=== PATIENT | female | born 1930 | race Caucasian/White ===

== ENCOUNTER 2016-09-22 16:40 | Inpatient (IN) ==
[~2016-09-22 16:40] MED LIST: NORCURON ONE
[2016-09-22] MEDS ORDERED: ASPIRIN PO STA (16:54)
--- NOTE | 2016-09-22 17:32 | Diag Imaging Result Doc PS360 ---
EXAM : HEAD/C-SPINE W/O CONTRAST HISTORY: fall TECHNIQUE: COMPARISON: None. FINDINGS: Head: No parenchymal hemorrhage. No epidural or subdural hematoma. No subarachnoid hemorrhage. No mass identified on this noncontrasted exam. No hydrocephalus. No sinus opacification. Cervical spine: There is good alignment to the cervical spine. No precervical soft tissue swelling. No subluxation. There is a lucent line to the right lamina of the T1 vertebra. Questionable extension into the transverse process. No other fracture. The bones are osteopenic. IMPRESSION: Head: No hemorrhage. No injury. Cervical spine: Lucent line through the right lamina of the T1 vertebra which may not be acute. No other acute injury identified. Electronically signed by Foreign Terry 09/22/2016 5:30 PM
[2016-09-22 17:38] LABS: MANUAL DIFF NEEDED? NO
--- NOTE | 2016-09-22 17:41 | Diag Imaging Result Doc PS360 ---
EXAM: CT THORAX W/O CONTRAST HISTORY: fall TECHNIQUE: COMPARISON: 11/15/2015 FINDINGS: No pneumothoraces. There are multifocal dense bilateral infiltrates. Trace pleural fluid. No cardiomegaly. No blood in the mediastinum. No compressed thoracic vertebra. No other injury. IMPRESSION: Multifocal dense bilateral infiltrates with trace pleural fluid. Electronically signed by Foreign Terry 09/22/2016 5:38 PM
[2016-09-22 17:44] LABS: BASO% 0.5 % (0.0-0.8); HEMATOCRIT 45.8 % (37.0-47.0); HEMOGLOBIN 14.6 g/dL (12.0-16.0); IMM GRAN# 0.05 X1000 (0.0-0.04); IMM GRAN% 0.5 % (0.0-0.5); LYMPH# 3.38 X1000 (1.2-3.4); LYMPH% 34.6 % (20.5-51.1); MCHC 31.9 g/dL (33-37); MCV 94.2 FL (81-99); MONO# 0.72 X1000 (0.11-0.59); MONO% 7.4 % (1.7-9.3); MPV 11.3 FL (7.4-10.4); PLT 248 X1000 (130-400); RBC 4.86 XMIL (4.2-5.4)
--- NOTE | 2016-09-22 17:45 | PROVIDER DOCUMENTATION ---
This chart was entered by Bruce Dickey Scribe, acting as scribe for Jacinto Schafer MD. [id number] - General Source: EMS Unable to obtain history due to:: urgency - History of Present Illness -Trauma Location of Pain/Injury: reports: neck, back Pain Radiation: reports: no radiation Quality of Pain: reports: dull Severity: reports: severe Onset/Duration: reports: abrupt, 1 hour ago Timing: reports: still present, constant, getting worse Method of Injury: reports: direct blow, fall Loss of Consciousness: no loss of consciousness Remembers:: reports: injury, coming to hospital Modifying Factors: worse with: movement, palpation Injury Associated Symptoms: reports: back/neck pain, shortness of breath. denies: dizziness, nausea, snap/crack/pop sensation, vomiting Locality of Occurance: Home Similar Symptoms Previously?: No Recently seen or treated by another doctor?: No <Jacinto Schafer I - Last Filed: 09/22/16 17:44> <Ralph Rdz - Last Filed: 09/22/16 21:47> - General Stated Complaint: FALL Time Seen by Provider: 09/22/16 16:40 Allergies/Adverse Reactions: Patient Allergies Allergy/AdvReac Type Severity Reaction Status Date / Time Penicillins Allergy Unknown Verified 11/15/15 20:15 Home Medications: Home Medication List Medication Instructions Recorded Confirmed Last Taken Type Diltiazem HCl [Diltiazem 24Hr Cd] 180 mg PO DAILY #30 cap.er.24h 12/17/1305/27/14 22:15 Rx Pantoprazole [Protonix] 40 mg PO DAILY@0700 #30 tablet 03/09/14 09/22/16 07:00 Rx Metoprolol Tartrate 25 mg PO DAILY PRN #30 tablet 05/28/14 09/22/16 09/22/16 07: 00 Rx Potassium Chloride E.r. [Micro-K] 10 meq PO DIRECTED 05/28/14 09/22/16 1 Day Ago History Rivaroxaban [Xarelto] 15 mg PO DAILY 05/28/14 09/22/16 09/22/16 07:00 History Polyethylene Glycol 3350 [Miralax] 17 gm PO DAILY #7 powd.pack 11/15/15 Unknown Rx Sitagliptin [Januvia] 50 mg PO BID 09/22/16 09/22/16 09/22/16 07:00 History - History of Present Illness -Trauma Nature of Presenting Problem: Patient is a 86 y/o F that presents to the ER via EMS after falling from porch ( 4ft). she reports slipping. Denies loc, reports she might have hit the back of her head. EMS arrived, patient denied back or neck pain. She reported short of breath and was found to have o2 saturation in the 60s to 70s on RA. she was placed on c-pap. she then started to report back/neck pain. (Bruce Dickey) Patient is a 86 y/o F that presents to the ER via EMS after falling from porch ( 4ft). she reports slipping. Denies loc, reports she might have hit the back of her head. EMS arrived, patient denied back or neck pain. She reported short of breath and was found to have o2 saturation in the 60s to 70s on RA. she was placed on c-pap. she then started to report back/neck pain. (Jacinto Schafer I) Review of Systems - Adult - REVIEW OF SYSTEMS - ADULT ROS:: limited per condition Constitutional: reports: no symptoms reported Eyes: denies: decreased vision, blurred vision, double vision Ears, Nose, Mouth & Throat: denies: ear discharge, epistaxis, sinus problem Cardiovascular: denies: chest pain, palpitations Respiratory: reports: shortness of breath. denies: cough Gastrointestinal: denies: abdominal pain, nausea, vomiting Genitourinary: reports: no symptoms reported Musculoskeletal: reports: back pain, neck pain Integumentary: reports: no symptoms reported Neurological: denies: dizziness/vertigo, headache/migraines, seizure, syncope Psychiatric: reports: no symptoms reported Endocrine: reports: no symptoms reported Hematologic/Lymphatic: reports: no symptoms reported Allergic/Immunologic: reports: no symptoms reported All Other Systems: Reviewed and Negative <Jacinto Schafer I - Last Filed: 09/22/16 17:44> - REVIEW OF SYSTEMS - ADULT Constitutional: reports: no symptoms reported <Ralph Rdz - Last Filed: 09/22/16 21:47> Past History - Adult - PAST MEDICAL HISTORY-ADULT Review of Records: reports: Old Records Reviewed, Nursing Assessment Review, Medications Reviewed Cardiovascular: reports: A-Fib, HTN, heart valve problem, hyperlipidemia, palpitations Gastrointestinal: reports: GERD Psychiatric: reports: anxiety, depression Endocrine/Immune: reports: thyroid disorder - PRIOR SURGERIES/PROCEDURES Surgical/Procedure History: reports: appendectomy, cholecystectomy, hysterectomy , tonsillectomy, orthopedic (extremity) - IMMUNIZATION STATUS Childhood Immunizations: UTD Flu Vaccine: See Nurse Assessment - FAMILY HISTORY Family History: reviewed, not pertinent - SOCIAL HISTORY Smoking: non-smoker Living Situation: family <Jacinto Schafer I - Last Filed: 09/22/16 17:44> - PAST MEDICAL HISTORY-ADULT Review of Records: reports: Old Records Reviewed, Nursing Assessment Review, Medications Reviewed <Ralph Rdz - Last Filed: 09/22/16 21:47> Physical Exam-Injury Related - Physical Exam-Injury Related Exam Limited by: pt condition Initial Vital Signs Reviewed: Yes General Appearance: alert, severe distress Immobilization?: C-collar, applied 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 Eyes: PERRL/EOMI, pink conjunctivae Head, Ears, Nose, Mouth & Throat: normocephalic/atraumatic, moist mucous membranes, normal ENT inspection Respiratory: respiratory distress (moderate to severe), accessory muscle use, rales (bilaterally) Cardiovascular: regular rate, rhythm, no edema, no murmur Abdominal Exam: normal bowel sounds, non tender, soft, no organomegaly, no pulsatile mass Extremity: normal range of motion, no pedal edema, normal capillary refill, pelvis stable Integumentary: normal color, warm/dry Neurologic: contact lens molder II-XII nml as tested, no motor/sensory deficits Psych/Mental Status: normal mood/affect, normal thought content, normal thought process, oriented x 3 - Glascow Coma Score Best Eye Response ([place]): (4) open spontaneously Best Verbal Response ([place]): (5) oriented Best Motor Response ([place]): (6) obeys commands [place] Total: 15 <Jacinto Schafer I - Last Filed: 09/22/16 17:44> - Physical Exam-Injury Related Initial Vital Signs Reviewed: Yes General Appearance: alert <Ralph Rdz - Last Filed: 09/22/16 21:47> Progress - PLAN OF CARE/RESULTS Result Diagrams: 09/22/16 16:52 - EKG 1 Time of EKG reading by physician:: 16:42 EKG Read and Signed by:: Jacinto Schafer EKG Interpretation (*Must complete 3 of following elements*): Abnormal Rate: 83 Rhythm: NSR Spangler: normal QRS: normal GA Interval: normal ST Wave: non-specific ST changes - CT/MRI 1 CT Study: Cervical Spine, Head Impression: Abnormal CT Results: no hemorrhage, lucent line through the R lamina of T1 vertebra - CHANGE OF SHIFT REPORT (ED Provider) Report Given and Care Transferred to:: [facility] Time of Transfer: 18:00 Items Pending: Labs, XRAY Results, CT/MRI Results <Jacinto Schafer I - Last Filed: 09/22/16 17:44> - PLAN OF CARE/RESULTS Result Diagrams: 09/22/16 16:52 09/22/16 16:52 - XRAY 1 XRAY Study: other (flex/ext neck) Impression: Normal - CT/MRI 2 CT Study: Thorax Impression: Abnormal (multifocal infiltrates) - CONSULTS/PCP/HOSPITALIST Notification #1 *Consult/PCP/Hospitalist*: Dr Castillo, neurosurg at , reviewed CT does not see T1 FX rec flex/ext Time Discussed: 20:42 (C Collar if not instability) <Ralph Rdz - Last Filed: 09/22/16 21:47> - PLAN OF CARE/RESULTS Progress/Plan/Lab Results: Vital Signs - 8 hr 09/22/16 17:22 Temperature 99.9 F H Pulse Rate 83 Respiratory Rate 24 Blood Pressure 177/102 O2 Sat by Pulse Oximetry 98 Laboratory Results - last 24 hr 09/22/16 09/22/16 09/22/16 16:52 16:52 16:52 WBC 9.76 RBC 4.86 Hgb 14.6 Hct 45.8 MCV 94.2 MCH 30.0 MCHC 31.9 L RDW Std Deviation 14.3 Plt Count 248 MPV 11.3 H Immature Gran % (Auto) 0.5 Neut % (Auto) 56.0 Lymph % (Auto) 34.6 Hubbard % (Auto) 7.4 Eos % (Auto) 1.0 Baso % (Auto) 0.5 Immature Gran # (Auto) 0.05 H Neut # (Auto) 5.46 Lymph # (Auto) 3.38 Hubbard # (Auto) 0.72 H Eos # (Auto) 0.10 Baso # (Auto) 0.05 PT INR PTT (Actin FS) Sodium 134 L Potassium 4.7 Chloride 98 Carbon Dioxide 24 L Anion Gap 12 BUN 19 Creatinine 0.8 Estimated GFR/1.73 m2 > 60 BUN/Creatinine Ratio 24 Glucose 136 H Calculated Osmolality 273 Calcium 9.9 Magnesium 2.3 Total Bilirubin 0.23 AST 25 ALT 10 Alkaline Phosphatase 75 Creatine Kinase 91 Troponin T Tbo-W-Qsxlqxiikty Pept 281 Total Protein 7.5 Albumin 3.8 Globulin 3.7 Albumin/Globulin Ratio 1.0 Plasma Lactate 09/22/16 09/22/16 09/22/16 16:52 16:52 19:35 WBC RBC Hgb Hct MCV MCH MCHC RDW Std Deviation Plt Count MPV Immature Gran % (Auto) Neut % (Auto) Lymph % (Auto) Hubbard % (Auto) Eos % (Auto) Baso % (Auto) Immature Gran # (Auto) Neut # (Auto) Lymph # (Auto) Hubbard # (Auto) Eos # (Auto) Baso # (Auto) PT 10.4 INR 0.99 PTT (Actin FS) 27.3 Sodium Potassium Chloride Carbon Dioxide Anion Gap BUN Creatinine Estimated GFR/1.73 m2 BUN/Creatinine Ratio Glucose Calculated Osmolality Calcium Magnesium Total Bilirubin AST ALT Alkaline Phosphatase Creatine Kinase Troponin T < 0.010 Bai-S-Eeudhmuejyz Pept Total Protein Albumin Globulin Albumin/Globulin Ratio Plasma Lactate 1.6 Orders Category Date Time Status Cardiac Monitoring DIRECTED Care 09/22/16 16:54 Active Estevez Cath Insertion ORDERED Care 09/22/16 20:54 Active Oxygen Therapy- ED Nursing DIRECTED Care 09/22/16 16:54 Active Saline Loc NOW Care 09/22/16 16:54 Active C-SPINE COMPLET FLEX/EXTENSION [RAD] Stat Exams 09/22/16 20:41 Taken Chest [CT THORAX W/O CONTRAST] [CT] Stat Exams 09/22/16 16:56 Completed HEAD/C-SPINE W/O CONTRAST [CT] Stat Exams 09/22/16 16:57 Completed BLOOD CULTURE [BLDCUL] Stat Lab 07/03/17 19:30 Results CBC WITH ELECTRONIC DIFF [HEME] Stat Lab 09/22/16 16:52 Completed CK PROFILE [SP CHEM] Stat Lab 09/22/16 16:52 Completed COMPREHENSIVE METABOLIC PANEL [CHEM] Stat Lab 09/22/16 16:52 Completed LACTATE, PLASMA [CHEM] Stat Lab 09/22/16 19:35 Completed MAGNESIUM [CHEM] Stat Lab 09/22/16 16:52 Completed PRO B-NATRIURETIC PEPTIDE Stat Lab 09/22/16 16:52 Completed PROTIME WITH INR [COAG] Stat Lab 09/22/16 16:52 Completed PTT [COAG] Stat Lab 09/22/16 16:52 Completed TROPONIN T Stat Lab 09/22/16 16:52 Completed Aspirin Med 09/22/16 16:54 Discontinued 325 mg PO STAT STA Azithromycin 500 mg/Ns [Zithromax 500 mg/Ns] Med 09/22/16 18:58 Discontinued 500 mg in 250 ml IV NOW CefTRIAXONE 1 GM/NS [Rocephin 1 gm/Ns] Med 09/22/16 18:58 Discontinued 1 gm in 50 ml IV NOW Vecuronium [Norcuron] Med 09/22/16 16:37 Discontinued 10 mg .ROUTE .STK-MED ONE EKG [EKG] Stat Ther 09/22/16 16:54 Ordered Departure <Jacinto Schafer I - Last Filed: 09/22/16 17:44> - Departure Date of Disposition Decision: 09/22/16 Time of Disposition Decision: 21:46 Certified Medical Emergency: Emergent - Critical Care Note This patient required my direct & personal management of CC.: No <Ralph Rdz - Last Filed: 09/22/16 21:47> - Departure DIAGNOSIS: Pneumonia Qualifiers: Pneumonia type: due to unspecified organism Laterality: bilateral Lung location : unspecified part of lung Qualified Code(s): J18.9 - Pneumonia, unspecified organism Disposition: ADMITTED INPATIENT 09 Condition: Fair Referrals and Follow-Ups: Darin Becerra [Primary Care Provider] - This chart was documented by the indicated scribe, (Bruce Dickey, Scribe) and accurately reflects the services I performed and decisions made by Hanh zamudio Christophe I, MD, as attested by the provider's signature.
[2016-09-22 17:53] LABS: AGAP 12; ALBUMIN 3.8 g/dL (3.5-5.0); ALKALINE PHOSPHATASE 75 U/L (32-104); BUN 19 mg/dL (8-22); CALCIUM 9.9 mg/dL (8.8-10.2); CHLORIDE 98 mmol/L (98-107); CK PROFILE 91 U/L (24-173); COSMO 273; GOT 25 U/L (10-30); GPT 10 U/L (10-36); MAGNESIUM 2.3 mg/dL (1.5-2.7); POTASSIUM 4.7 mmol/L (3.5-5.1); SODIUM 134 mmol/L (136-145); TCO2 24 mmol/L (25-35); TOTAL BILIRUBIN 0.23 mg/dL (0.20-1.00); TOTAL PROTEIN 7.5 g/dL (6.3-8.3)
[2016-09-22 17:56] LABS: INR 0.99; PROTIME 10.4 Seconds (9.2-11.7); PTT 27.3 Seconds (22.0-36.0)
[2016-09-22] MEDS ORDERED: ZITHROMAX 500 MG/NS 500 MG/250 ML IVPB IV ONE (18:58)
[2016-09-22] MEDS ORDERED: ROCEPHIN 1 GM/NS 1 GM/50 ML IVPB IV ONE (18:58)
--- NOTE | 2016-09-22 22:05 | Diag Imaging Result Doc PS360 ---
EXAM: C-SPINE COMPLET FLEX/EXTENSION HISTORY: ? T1 FX TECHNIQUE: Flexion and extension, two views COMPARISON: None. FINDINGS: No subluxation occurs on the flexion or extension views. No precervical soft tissue swelling. No bony abnormality identified. IMPRESSION: Negative exam. Electronically signed by Foreign Terry 09/22/2016 10:02 PM
[2016-09-23] MEDS ORDERED: NS 1,000 ML IV SCH (00:19)
[2016-09-23] MEDS ORDERED: LOPRESSOR PO PRN (00:19)
--- NOTE | 2016-09-23 00:32 | HISTORY AND PHYSICAL ---
PRIMARY CARE PROVIDER: Dr. Darin Becerra. CHIEF COMPLAINT: Fall, pleuritic chest pain and cough. HISTORY OF PRESENT ILLNESS: Ms. Norma Vines is a 86-year-old female who has a history of hypertension, chronic atrial fibrillation, GERD, diabetes mellitus type 2 who experienced a fall today. She was climbing her steps in the rain and lost her balance and landed on her back and hit her head. CT that showed that there was possibly an old T1 fracture but chest CT showed that she has bilateral infiltrates. She states that she has been having some chest pains that is worse with inspiration primarily at night with wheezing with a cough that is nonproductive and associated chills. She states that the pain radiates to her back but no other symptoms worse when she is coughing. Her white blood cell count is normal at 9000 but she has a low-grade fever of 99.9. Cardiac enzymes were negative so will admit for IV antibiotic therapy of her pneumonia. PAST MEDICAL HISTORY: 1. Questionable congestive heart failure. Difficult to obtain this information from the patient. 2. Hypertension. 3. GERD. 4. Osteoarthritis. 5. Chronic atrial fibrillation. 6. Diabetes mellitus type 2. PAST SURGICAL HISTORY: Is positive for hysterectomy, cholecystectomy, appendectomy, back surgery and colon surgery. SOCIAL HISTORY: She lives at home alone. Denies tobacco, alcohol or illicit drug use. ALLERGIES: Penicillin. HOME MEDICATIONS: Diltiazem 180 mg p.o. daily, metoprolol tartrate 25 mg p.o. daily, Protonix 40 mg p.o. daily, MiraLAX 17 g p.o. daily, potassium chloride extended release 10 mEq as directed, Xarelto 50 mg p.o. daily, Januvia 50 mg p.o. twice daily. REVIEW OF SYSTEMS: Fourteen point review of systems were complete and all were negative except for those mentioned above HPI. Of note she states that she has been having some dark stools with some mild diarrhea but hemoglobin, hematocrit are stable at this time. PHYSICAL EXAMINATION: VITAL SIGNS: Temperature 99.9 degrees, heart rate 83, respiratory rate 24, blood pressure 177/1O2, saturation 98% on room air. She is 5 feet 4 inches tall, 165 pounds, a BMI 28.3. GENERAL: Ms. Norma Vines is 86-year-old elderly female. She is in no acute distress is able answer questions appropriately. HEENT: Atraumatic, normocephalic. Pupils equal, round, reactive to light. Extraocular movements intact. Mucous membranes are dry. NECK: No JVD or carotid bruits noted. CARDIOVASCULAR: Irregularly irregular rate, rhythm. No rubs, gallops, murmurs. PULMONARY: Clear to auscultate with mild rhonchi bilateral mid to lower bases posteriorly. No accessory muscle use or work of breathing noted. GI: Soft, nontender, round, positive bowel sounds x4. EXTREMITIES: Trace lower extremity edema but +2 dorsalis and radial pulses. SKIN: Warm, dry, intact. NEURO: Oriented x3. Moves all extremities equally. LABORATORY DATA: White blood cells 9000, hemoglobin 14, hematocrit 45, platelet count 248,000. INR 0.99, PTT is 27.3. Sodium 134, potassium 4.7, BUN 19, creatinine 0.8, glucose 136, calcium 9.9, magnesium 2.3, total bilirubin 0.23, AST 25, ALT 10, CK 91, troponin less than 0.01, proBNP is 281, albumin 3.8, lactate 1.6. IMAGING: Chest CT. Multifocal dense bilateral infiltrates with trace pleural fluid. Head, cervical spine CT. Head was negative for any acute findings. Cervical spine had a lucent line through the right lamina of the T1 vertebra which does not appear acute and no other acute findings. Spine flexion-extension is negative. EKG currently normal sinus rhythm. Rate was 83. ASSESSMENT AND PLAN: 1. Bilateral community-acquired pneumonia. She will receive Rocephin and azithromycin, nebulizers q.6 hours, turn, cough, deep breathe. Trend white blood cells and temperatures. 2. Hypertension. Continue home medications. 3. Gastroesophageal reflux disease. Continue home medications. 4. Diabetes mellitus type 2. Pattern blood glucoses and sliding scale insulin and diabetic diet. 5. Chronic prophylaxis atrial fibrillation. Continue Xarelto. Dictated by RUTH Almanzar for Annita Rosas MD cc: MD Annita Donis MD
[2016-09-23] MEDS: DUONEB (A & A) INH SCH ×4 (03:45→20:22)
[2016-09-23] MEDS: TYLENOL PO PRN ×2 (04:26→16:10)
[2016-09-23] MEDS: HUMULIN R SUBQ SCH ×4 (06:18→21:34)
[2016-09-23 07:09] LABS: MANUAL DIFF NEEDED? NO
[2016-09-23 07:10] LABS: BASO% 0.2 % (0.0-0.8); EOS# 0.11 X1000 (0.0-0.7); HEMATOCRIT 35.8 % (37.0-47.0); HEMOGLOBIN 11.2 g/dL (12.0-16.0); IMM GRAN# 0.02 X1000 (0.0-0.04); IMM GRAN% 0.2 % (0.0-0.5); LYMPH# 2.47 X1000 (1.2-3.4); LYMPH% 22.7 % (20.5-51.1); MCH 29.6 PG (27-31); MCHC 31.3 g/dL (33-37); MCV 94.5 FL (81-99); MONO# 1.02 X1000 (0.11-0.59); MONO% 9.4 % (1.7-9.3); MPV 10.9 FL (7.4-10.4); NEUT% 66.5 % (42.2-75.2); PLT 222 X1000 (130-400); RBC 3.79 XMIL (4.2-5.4)
[2016-09-23 07:40] LABS: AGAP 9; ALBUMIN 3.4 g/dL (3.5-5.0); ALKALINE PHOSPHATASE 61 U/L (32-104); BUN 17 mg/dL (8-22); CALCIUM 9.4 mg/dL (8.8-10.2); CHLORIDE 106 mmol/L (98-107); COSMO 285; GOT 20 U/L (10-30); GPT 10 U/L (10-36); POTASSIUM 4.1 mmol/L (3.5-5.1); SODIUM 142 mmol/L (136-145); TCO2 27 mmol/L (25-35); TOTAL BILIRUBIN 0.33 mg/dL (0.20-1.00); TOTAL PROTEIN 5.9 g/dL (6.3-8.3)
[2016-09-23] MEDS: MIRALAX PO SCH (08:21)
[2016-09-23] MEDS: JANUVIA PO SCH ×2 (08:21→21:32)
[2016-09-23] MEDS: PROTONIX PO SCH (08:22)
[2016-09-23] MEDS: CARDIZEM CD PO SCH ×2 (08:22→09:03)
[2016-09-23] MEDS: MERREM 500 MG in NS 50 ML IV SCH ×2 (08:23→17:07)
[2016-09-23] MEDS: XARELTO PO SCH (09:02)
[2016-09-23] MEDS: ROCEPHIN 1 GM/NS 1 GM/50 ML IVPB IV SCH (17:52)
[2016-09-23] MEDS: ZITHROMAX 500 MG/NS 500 MG/250 ML IVPB IV SCH (21:34)
[2016-09-24] MEDS: MERREM 500 MG in NS 50 ML IV SCH ×3 (02:39→16:36)
[2016-09-24] MEDS: DUONEB (A & A) INH SCH ×4 (03:35→22:12)
--- NOTE | 2016-09-24 05:42 | EKG Report ---
Test Performed on : 09/22/2016 4:42:39 PM Test Reason : SOB Blood Pressure : / mmHG Vent. Rate : 083 BPM Atrial Rate : 083 BPM P-R Int : 162 ms QRS Dur : 084 ms QT Int : 352 ms P-R-T Axes : 047 027 060 degrees QTc Int : 413 ms Normal sinus rhythm. with sinus arrhythmia. Nonspecific ST abnormality Abnormal ECG When compared with ECG of 28-MAY-2014 07:01, No significant change was found Unconfirmed Result
[2016-09-24] MEDS: HUMULIN R SUBQ SCH ×3 (06:17→18:14)
[2016-09-24 06:40] LABS: MANUAL DIFF NEEDED? NO
[2016-09-24] MEDS: PROTONIX PO SCH (06:54)
[2016-09-24 07:02] LABS: BASO% 0.3 % (0.0-0.8); EOS# 0.09 X1000 (0.0-0.7); EOS% 1.2 % (0.0-10.0); HEMATOCRIT 33.6 % (37.0-47.0); HEMOGLOBIN 10.4 g/dL (12.0-16.0); LYMPH% 28.6 % (20.5-51.1); MCH 29.5 PG (27-31); MCV 95.5 FL (81-99); MONO# 0.71 X1000 (0.11-0.59); MONO% 9.2 % (1.7-9.3); MPV 10.8 FL (7.4-10.4); NEUT% 60.7 % (42.2-75.2); PLT 208 X1000 (130-400); RBC 3.52 XMIL (4.2-5.4)
[2016-09-24 07:18] LABS: AGAP 7; ALBUMIN 3.3 g/dL (3.5-5.0); BUN 12 mg/dL (8-22); CALCIUM 9.4 mg/dL (8.8-10.2); CHLORIDE 107 mmol/L (98-107); COSMO 285; POTASSIUM 4.3 mmol/L (3.5-5.1); SODIUM 143 mmol/L (136-145); TCO2 29 mmol/L (25-35)
[2016-09-24] MEDS: CARDIZEM CD PO SCH (10:37)
[2016-09-24] MEDS: MIRALAX PO SCH (10:38)
[2016-09-24] MEDS: XARELTO PO SCH (10:38)
[2016-09-24] MEDS: JANUVIA PO SCH ×2 (10:39→21:23)
--- NOTE | 2016-09-24 15:15 | PROGRESS NOTE ---
DATE: 09/24/2016 SUBJECTIVE: Patient reports breathing better. Denies any shortness of breath at rest or any chest discomfort or chest pressure. OBJECTIVE: Vital Signs: Temperature 98.7 degrees, heart rate 88, respiratory rate 17, blood pressure 151/53, O2 saturation 98% on room air. General Examination: This is an 86-year-old female lying in bed, in no acute distress. HEENT: Head is normocephalic, atraumatic. Anicteric sclerae and pale conjunctivae. Mucous membranes moist. Neck: Supple. No JVD noted. No carotid bruits. No thyromegaly. Cardiovascular: S1, S2 heard. No murmurs, gallops, or rubs. Regular rate and rhythm. Respiratory: Minimal wheezing in both bases. Patient is not using any accessory muscles or having work of breathing. Abdomen: Soft. Nontender to palpation. Bowel sounds present. No organomegaly. Extremities: No clubbing, cyanosis, or edema. Peripheral pulses present in both legs. Neurological: Patient alert and oriented x3. Able to move 4 extremities. Cranial nerves 2-12 grossly normal. LABORATORY DATA: Reviewed. ASSESSMENT AND PLAN: 1. Bilateral community-acquired pneumonia. Patient is receiving azithromycin and will continue with the same management as well as nebulizations. The white cell count is back to normal. Patient is not developing any fever. 2. Hypertension. We will continue with home medications. 3. Gastroesophageal disease. We are going to continue with Protonix. 4. Diabetes mellitus type 2. Patient is on sliding scale insulin. 5. Atrial fibrillation with chronic anticoagulation. We will continue with Xarelto. cc: Raúl Teresa MD
[2016-09-24] MEDS: ROCEPHIN 1 GM/NS 1 GM/50 ML IVPB IV SCH (18:15)
[2016-09-24] MEDS: ZITHROMAX 500 MG/NS 500 MG/250 ML IVPB IV SCH (21:23)
[2016-09-25] MEDS: HUMULIN R SUBQ SCH ×3 (01:26→12:14)
[2016-09-25] MEDS: DUONEB (A & A) INH SCH ×2 (03:00→10:34)
[2016-09-25] MEDS: PROTONIX PO SCH (06:11)
[2016-09-25 06:45] LABS: MANUAL DIFF NEEDED? NO
[2016-09-25 06:55] LABS: BASO% 0.3 % (0.0-0.8); EOS# 0.12 X1000 (0.0-0.7); EOS% 1.7 % (0.0-10.0); HEMATOCRIT 35.6 % (37.0-47.0); HEMOGLOBIN 11.1 g/dL (12.0-16.0); LYMPH# 2.21 X1000 (1.2-3.4); LYMPH% 31.4 % (20.5-51.1); MCH 29.7 PG (27-31); MCHC 31.2 g/dL (33-37); MCV 95.2 FL (81-99); MONO% 8.5 % (1.7-9.3); MPV 10.5 FL (7.4-10.4); NEUT% 58.1 % (42.2-75.2); PLT 223 X1000 (130-400); RBC 3.74 XMIL (4.2-5.4)
[2016-09-25 07:25] LABS: AGAP 7; ALBUMIN 3.6 g/dL (3.5-5.0); BUN 13 mg/dL (8-22); CALCIUM 9.9 mg/dL (8.8-10.2); CHLORIDE 102 mmol/L (98-107); COSMO 276; POTASSIUM 4.5 mmol/L (3.5-5.1); SODIUM 138 mmol/L (136-145); TCO2 29 mmol/L (25-35)
[2016-09-25] MEDS: JANUVIA PO SCH (10:51)
[2016-09-25] MEDS: CARDIZEM CD PO SCH (10:51)
[2016-09-25] MEDS: XARELTO PO SCH (10:51)
[2016-09-25] MEDS: MIRALAX PO SCH (10:51)
[2016-09-25] MEDS: MERREM 500 MG in NS 50 ML IV SCH ×3 (10:52)
[2016-09-25 14:25] VITALS: BP 107/52
--- NOTE | 2016-09-25 16:45 | DISCHARGE SUMMARY ---
ADMISSION DATE: 09/23/2016 DISCHARGE DATE: 09/25/2016 CONSULTATIONS: None. PERTINENT PROCEDURES: 1. Chest CT showing multifocal dense bilateral infiltrates with trace fluid. 2. Cervical spine CT showed no hemorrhage, no injury. Cervical spine, lucent line through the right lamina to the T1 vertebra which would not be acute. No other injury identified. 3. Spine flexion-extension x-ray was negative. No subluxation occurs on the flexion or extension. No precervical soft tissue swelling. No bony abnormality. DISCHARGE DIAGNOSES: 1. Bilateral community-acquired pneumonia. Patient will continue with p.o. antibiotics. Improved. 2. Hypertension. Continue home medications. Stable. 3. Gastroesophageal reflux disease. Continue proton pump inhibitor. 4. Diabetes mellitus type 2. Continue home medications. 5. Atrial fibrillation with chronic anticoagulation. Stable. Continue Xarelto. HOSPITAL COURSE: Briefly, Ms. Vines is an 86-year-old, female, with history of hypertension, chronic atrial fibrillation, GERD, diabetes type 2. She experienced the following. On the day of her admission, she was climbing her steps in the rain and lost her balance, landed on her back and hit her head. CT showed possibility of an old T1 fracture, but chest CT showed that she had bilateral infiltrates. She states that she has been having some chest pains that was worse with inspiration, primarily at night. Wheezing with a cough, nonproductive, associated with chills. She stated that the pain radiated to her back. Was worse when she coughed. Her white count was 9000, but she had a low-grade fever of 99.9, cardiac enzymes have been negative. She was admitted for community-acquired pneumonia. Started on IV antibiotic therapy , bronchodilator therapy and aggressive pulmonary toilet as well as continued on all her home medications. Her head and cervical spine CT were negative. Patient's breathing has improved. She is being discharged home today. VITAL SIGNS: Temperature is 97.6 degrees, heart rate 97, respirations 18, blood pressure is 107/52, O2 is 96% on room air. DISCHARGE DIET: Diabetic. DISCHARGE MEDICATIONS: 1. Tylenol Extra-Strength 500 mg p.o. b.i.d. p.r.n. 2. Eliquis 2.5 mg p.o. b.i.d. 3. Pepcid 20 mg p.o. daily. 4. Fish oil 1200 mg p.o. daily. 5. Lasix 20 mg p.o. daily. 6. Levaquin 750 mg p.o. daily for 7 days. 7. Metoprolol 50 mg p.o. daily. 8. Centrum Silver 1 each p.o. daily. 9. MiraLAX 17 g p.o. daily. 10. Micro-K 10 mEq p.o. as directed. 11. Januvia 50 mg p.o. daily. FOLLOWUP: The patient is being discharged home with home health. She is to follow up with her primary care physician, Dr. Darin Becerra, in 7-10 days. She will need to take all her antibiotics as prescribed. Patient can return to the ED for any worsening of symptoms. TIME SPENT ON DISCHARGE: 35 minutes. Dictated by RUTH Gale for Raúl Teresa MD cc: MD Darin José MD MTDD
== END 2016-09-25 16:46 | disposition home health service (06) ==
LOC: ED 16:40 → SUATTDRO 09-23 00:17 → 3N 09-23 00:17
PROVIDERS: ATTEND Internal Medicine